=== PATIENT | female | born 1985 | race Caucasian/White ===

== ENCOUNTER → 2017-07-01 | Outpatient (CLI) | payer OTHER ==
[~2017-07-01] MED LIST: FOLIC ACID0.8 M1 PO; OSTERA TABLET1 EACH PO; SYNTH; SYNTHROID175 MCG PO
== END | disposition home or self-care (01) ==
LOC: RX STUDY 08:55
DX: N91.2 Amenorrhea, unspecified (principal)

== ENCOUNTER → 2017-07-01 | Outpatient (CLI) | payer OTHER | END | disposition home or self-care (01) | LOC: SONOGRAMA 14:15 | DX: D25.9 Leiomyoma of uterus, unspecified (principal) ==